=== PATIENT | male | born 1985 | race Caucasian/White ===

== ENCOUNTER 2017-08-18 13:54 | Observation (INO) ==
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
[2017-08-18] MEDS ORDERED: *HR* LORazepam 2 MG/ML VIAL IM STA (14:52)
[2017-08-18] MEDS ORDERED: methylPREDNISolone 125 MG/2 ML VIAL IM ONE (14:57)
[2017-08-18] MEDS ORDERED: Ketorolac 15 MG/ML VIAL IVP ONE (14:57)
[2017-08-18] MEDS ORDERED: Carisoprodol 350 MG TABLET PO ONE (14:59)
[2017-08-18] MEDS ORDERED: Orphenadrine 60 MG/2 ML VIAL IM ONE (15:17)
[2017-08-18 16:06] LABS: Basophils % 0.1 %; Eosinophils # 0.1 K/mcL (0.0-0.6); Eosinophils % 0.3 %; Hematocrit 42.9 % (37.5-50.1); Hemoglobin 14.8 g/dL (12.9-16.9); Immature Granulocytes % 0.6 % (0-4); Lymphocytes # 1.1 K/mcL (0.6-4.6); Lymphocytes % 6.8 %; Mean Corpuscular HGB Conc 34.5 g/dL (31.6-35.5); Mean Corpuscular Hemoglobin 31.8 pg (28.0-33.3); Mean Corpuscular Volume 92.1 fL (83.0-100.0); Mean Platelet Volume 9.2 fL (9.4-12.4); Monocytes # 0.8 K/mcL (0.0-1.3); Monocytes % 5.3 %; Neutrophils # 13.7 K/mcL (1.6-8.9); Platelet Count 290 K/mcL (140-400); Red Blood Count 4.66 M/mcL (4.19-5.50); Red Cell Distribution Width 11.5 % (11.5-14.5); Segmented Neutrophils % 86.9 %
[2017-08-18 17:15] LABS: Bilirubin,Urine Negative (Negative); Blood,Urine Negative (Negative); Clarity,Urine Turbid (Clear); Color,Urine Yellow (Yellow); Glucose,Urine (UA) Normal (Normal); Ketones,Urine Trace mg/dL (Negative); Leukocyte Esterase,Urine Negative (Negative); Nitrite,Urine Negative (Negative); PH,Urine 5.5 pH Units (5.0-8.0); Protein,Urine 30 mg/dL (Neg-Trace); Specific Gravity,Urine 1.028 (1.010-1.025); Urobilinogen,Urine Normal (Normal)
[2017-08-18 17:18] LABS: Bacteria,Urine None Seen per hpf (None-Few); Hyaline Casts,Urine None Seen per lpf (None-Few); RBC,Urine 0-3 per hpf (0-3); Squamous Epithelial Cell,Urine Many per lpf (None-Few)
[2017-08-18 17:31] LABS: BUN/Creatinine Ratio 16 (6-26); Blood Urea Nitrogen 17 mg/dL (8-26); Calcium 9.7 mg/dL (8.6-10.8); Carbon Dioxide 19 mEq/L (19-29); Chloride 107 mEq/L (98-109); Glucose 90 mg/dL (70-99); Potassium 3.3 mEq/L (3.5-4.5); eGFR For African Americans > 60 (> 60); eGFR For Non-African Americans > 60 (> 60)
[2017-08-18 17:40] LABS: Acetaminophen < 1.0 mcg/mL (10-30); Ethanol < 10 mg/dL (0-10); Salicylate < 5.0 mg/dL (15-30)
[2017-08-18 17:54] LABS: Amphetamine Screen,Urine Negative ng/mL (Cutoff=1000); Barbiturate Screen,Urine Negative ng/mL (Cutoff=200); Benzodiazepines Screen,Urine Negative ng/mL (Cutoff=200); Cannabinoid Screen,Urine Positive ng/mL (Cutoff = 50); Cocaine Screen,Urine Negative ng/mL (Cutoff= 300); Opiate Screen,Urine Negative ng/mL (Cutoff=300); Phencyclidine Screen,Urine Negative ng/mL (Cutoff=25)
[2017-08-18 18:03] LABS: Sodium 139 mEq/L (136-145)
[2017-08-18 18:08] LABS: Osmolality,Calculated 289 (280-300)
[2017-08-18] MEDS ORDERED: Haloperidol Lactate 5 MG/ML VIAL IM ONE (20:56)
[2017-08-18] MEDS ORDERED: traZODone 50 MG TABLET PO PRN (21:14)
[2017-08-18] MEDS ORDERED: *HR* LORazepam 1 MG TABLET PO PRN (21:14)
[2017-08-18] MEDS ORDERED: hydrOXYzine pamoate 25 MG CAPSULE PO PRN (21:14)
[2017-08-18] MEDS ORDERED: *HR* LORazepam 2 MG/ML VIAL IM PRN (21:14)
[2017-08-18] MEDS ORDERED: Mag Hydrox/Al Hydrox/Simeth 30 ML UDC PO PRN (21:14)
[2017-08-18] MEDS ORDERED: Haloperidol Lactate 5 MG/ML VIAL IM PRN (21:14)
[2017-08-18] MEDS ORDERED: MOM Conc 10 ML UD.LIQ PO PRN (21:14)
[2017-08-19] MEDS: Nicotine 2 MG GUM BC PRN ×2 (07:58→16:07)
[2017-08-19] MEDS: Acetaminophen 325 MG TABLET PO PRN (12:06)
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
[2017-08-19] MEDS: Divalproex (12 HR) 500 MG TABLET PO SCH (20:37)
[2017-08-19] MEDS ORDERED: Mirtazapine 15 MG TABLET PO SCH (21:00)
[2017-08-20] MEDS: Divalproex (12 HR) 500 MG TABLET PO SCH (08:36)
[2017-08-20] MEDS: Acetaminophen 325 MG TABLET PO PRN (09:39)
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
[2017-08-20 12:43] VITALS: BP 141/78
== END 2017-08-20 12:50 | disposition home or self-care (01) ==
LOC: 1ANU 13:54 → EMEROO 13:54 → SUATTDRO 20:59 → 1ANU 21:04
PROVIDERS: ADMIT Student in an Organized Health Care Education/Training Program; ATTEND Psychiatry & Neurology Psychiatry